=== PATIENT | male | born 1945 | race Caucasian/White ===

== ENCOUNTER 2023-05-12 14:45 | Inpatient (IN) | payer MEDICARE, OTHER ==
[2023-05-12] MEDS ORDERED: Morphine 4 MG/ML VIAL ONE (14:55)
[2023-05-12] MEDS ORDERED: Iopamidol-370 76% 500 ML MDV (1 ML CHARGE) ONE (14:59)
[2023-05-12] MEDS ORDERED: Piperacillin/Tazobactam 4.5 GM VIAL ONE (15:01)
[2023-05-12] MEDS ORDERED: Sodium Chloride 0.9% 100 ML ONE (15:01)
[2023-05-12 15:08] LABS: #Basophils 0.1 thou/uL (0.0-0.2); #Eosinphils 0.1 thou/uL (0.0-0.7); %Basophils 1.3 % (0.0-1.0); %Eosinophils 0.6 % (0.0-10.0); %Lymphocytes 38.3 % (21.0-51.0); %Monocytes 12.4 % (0.0-10.0); %Neutrophils 47.3 % (42.0-75.0); Hematocrit 39.8 % (42.0-52.0); Mean Corpuscular HGB CONC 32.7 g/dL (32.0-36.0); Mean Corpuscular Hemoglobin 31.9 pg (27.0-31.0); Mean Corpuscular Volume 97.5 fl (78.0-98.0); Mean Platelet Volume 10.3 fL (7.4-10.4); Platelet Count 215 10x3/uL (130-400); RBC Distribution Width 13.1 % (11.5-14.5); Red Blood Cell (RBC) Count 4.08 mill/uL (4.70-6.10); White Blood Cell (WBC) Count 8.4 10x3/uL (4.8-10.8)
[2023-05-12 15:33] LABS: ALT (SGPT) 17 U/L (8-55); AST (SGOT) 17 U/L (5-34); Albumin 3.9 g/dL (3.4-4.8); Alkaline Phosphatase 85 U/L (40-110); Anion Gap 12 mmol/L (10-20); BUN (Urea Nitrogen) 20 mg/dL (8.4-25.7); Bilirubin, Total 0.5 mg/dL (0.2-1.2); Calc. Creatinine Clearance 0 mL/min (70-130); Calcium 9.3 mg/dL (7.8-10.44); Carbon Dioxide 22 mmol/L (23-31); Chloride 106 mmol/L (98-107); Estimated GFR 81; Globulin 2.8 g/dL (2.4-3.5); Glucose 135 mg/dL (83-110); Protein, Total 6.7 g/dL (5.8-8.1); Sodium 136 mmol/L (136-145)
[2023-05-12] MEDS ORDERED: Ondansetron PF 4 MG/2 ML Vial IVP PRN ×2 (15:50→18:37)
[2023-05-12] MEDS ORDERED: Morphine 4 MG/ML VIAL SLOW IVP PRN (15:50)
[2023-05-12] MEDS ORDERED: Morphine 2 MG/ML VIAL SLOW IVP PRN (15:50)
[2023-05-12] MEDS ORDERED: traMADol HCl 50 MG TAB PO PRN (15:54)
[2023-05-12] MEDS ORDERED: Sodium Chloride 0.9% 1,000 ML IV SCH (16:00)
[2023-05-12] MEDS ORDERED: fentaNYL 50 mcg/mL 1 mL Vial ONE ×2 (17:00→20:20)
[2023-05-12] MEDS ORDERED: fentaNYL PF 100 MCG/2 ML SYRINGE ONE (17:18)
[2023-05-12] MEDS ORDERED: PROPOFOL 20 ML ONE (17:18)
[2023-05-12] MEDS ORDERED: Rocuronium Bromide 10 MG/ML (10ML VIAL) ONE ×2 (17:20→19:36)
[2023-05-12] MEDS ORDERED: Lidocaine 1% PF 5 ML VIAL ONE (17:20)
[2023-05-12] MEDS ORDERED: Ondansetron PF 4 MG/2 ML Vial ONE (17:20)
[2023-05-12] MEDS ORDERED: SUCCINYLCHOLINE/SOD CL,ISO/PF 200 MG/10 ML SYRINGE FS ONE (17:20)
[2023-05-12] MEDS ORDERED: SUGAMMADEX SODIUM 200 MG/2 ML VIAL ONE ×2 (17:20→19:47)
[2023-05-12] MEDS ORDERED: Dexamethasone 4 mg/ml Vial ONE (17:20)
[2023-05-12] MEDS ORDERED: Acetaminophen 500 MG TAB PO SCH (18:00)
[2023-05-12] MEDS ORDERED: Phenylephrine 10 MG/ML VIAL ONE (18:03)
[2023-05-12] MEDS ORDERED: Promethazine HCl 25 MG/ML VIAL IM PRN ×2 (18:37)
[2023-05-12] MEDS ORDERED: Ondansetron HCl/PF 4 MG/2 ML Vial IVP PRN (18:37)
[2023-05-12] MEDS ORDERED: diphenhydrAMINE 25 MG CAP PO PRN (18:37)
[2023-05-12] MEDS ORDERED: diphenhydrAMINE 50 MG/ML VIAL IVP PRN (18:37)
[2023-05-12] MEDS ORDERED: FENTANYL 500 MCG/10 ML VIAL 2,000 MCG in Sodium Chloride 0.9% 60 ML IV PRN (18:37)
[2023-05-12] MEDS ORDERED: Naloxone HCl 0.4 mg/ml Vial IV PRN (18:37)
[2023-05-12] MEDS ORDERED: diphenhydrAMINE 50 MG/ML VIAL IM PRN (18:37)
[2023-05-12] MEDS ORDERED: Communication Order-Pharmacy FS SCH (18:45)
[2023-05-12] MEDS ORDERED: Piperacillin/Tazobactam 3.375 GM in Sodium Chloride 0.9% 100 ML IVPB SCH (20:00)
[2023-05-12 23:21] LABS: Magnesium 1.9 mg/dL (1.6-2.6)
[2023-05-12] MEDS: Lactated Ringer's 1,000 ML IV SCH (23:21)
[2023-05-12] MEDS: Ketorolac Tromethamine 30 MG (1 mL) VIAL IVP SCH (23:22)
[2023-05-12] MEDS: Piperacillin/Tazobactam 3.375 GM in Sodium Chloride 0.9% 100 ML IVPB SCH (23:22)
[2023-05-12] MEDS: Enoxaparin 40 MG (0.4 mL) SYRINGE SC SCH (23:23)
[2023-05-12] MEDS: Famotidine/PF 20 mg/2ml Vial SLOW IVP SCH (23:23)
[2023-05-12 23:29] LABS: Critical Call Chem-Lactate NUR.AB6@2328; Lactic Acid 5.6 mmol/L (0.5-2.2)
[2023-05-13] MEDS: traMADol HCl 50 MG TAB PO SCH (00:38)
[2023-05-13] MEDS: Lactated Ringer's 1,000 ML IV SCH (01:21)
[2023-05-13 05:25] LABS: Hemoglobin 15.8 g/dL (14.0-18.0); Manual Diff?? YES; Mean Corpuscular HGB CONC 32.3 g/dL (32.0-36.0); Mean Corpuscular Hemoglobin 32.2 pg (27.0-31.0); Mean Corpuscular Volume 99.8 fl (78.0-98.0); Mean Platelet Volume 10.8 fL (7.4-10.4); Platelet Count 129 10x3/uL (130-400); RBC Distribution Width 13.3 % (11.5-14.5); White Blood Cell (WBC) Count 5.3 10x3/uL (4.8-10.8)
[2023-05-13 05:35] LABS: Anion Gap 16 mmol/L (10-20); BUN (Urea Nitrogen) 22 mg/dL (8.4-25.7); Calc. Creatinine Clearance 89 mL/min (70-130); Calcium 8.4 mg/dL (7.8-10.44); Carbon Dioxide 18 mmol/L (23-31); Chloride 108 mmol/L (98-107); Estimated GFR 66; Glucose 154 mg/dL (83-110); Magnesium 1.9 mg/dL (1.6-2.6); Potassium 4.8 mmol/L (3.5-5.1); Sodium 137 mmol/L (136-145)
[2023-05-13 05:44] LABS: Delete Auto Diff?? YES; Hematocrit 48.9 % (42.0-52.0)
[2023-05-13 06:33] LABS: Band 42 % (5-11); Burr Cells SLIGHT = 2-5 cells HPF (0-1); CellaVision Operator ID lab.sh2; Large Platelets 2.7 % (0-5); Lymphocytes 8 % (21-51); Metamyelocyte 7 % (0-0); Monocytes 16 % (0-10); Neutrophil 27 % (42-75); Platelet Adequacy Comment Platelets Decreased; Polychromasia SLIGHT = 2-3 cells HPF (0-2); Smudge Cells 24.8 %; Total Cell Count 113
[2023-05-13 09:59] LABS: INR-International Normal Ratio 1.2; PTT 27.6 sec (22.9-36.1); Prothrombin Time 14.8 sec (12.0-14.7)
[2023-05-13 11:38] LABS: Lactic Acid 4.7 mmol/L (0.5-2.2)
[2023-05-13] MEDS: Timolol 0.5% Ophth Soln 5 ml Bottle L EYE SCH (22:24)
[2023-05-13] MEDS: Polyvinyl Alcohol 1.4%/Povidone 0.6% Opth Drops L EYE SCH (22:26)
[2023-05-14 05:48] LABS: Manual Diff?? YES; Mean Corpuscular HGB CONC 31.7 g/dL (32.0-36.0); Mean Corpuscular Hemoglobin 32.1 pg (27.0-31.0); Mean Corpuscular Volume 101.3 fl (78.0-98.0); Mean Platelet Volume 10.7 fL (7.4-10.4); Platelet Count 113 10x3/uL (130-400); RBC Distribution Width 13.9 % (11.5-14.5); Red Blood Cell (RBC) Count 3.83 mill/uL (4.70-6.10); White Blood Cell (WBC) Count 9.7 10x3/uL (4.8-10.8)
[2023-05-14 05:50] LABS: Delete Auto Diff?? YES; Hematocrit 38.8 % (42.0-52.0); Hemoglobin 12.3 g/dL (14.0-18.0)
[2023-05-14 06:12] LABS: Lactic Acid 3.9 mmol/L (0.5-2.2)
[2023-05-14 06:13] LABS: Band 39 % (5-11); CellaVision Operator ID LAB.CLH1; Hypochromia SLIGHT = 6-15 cells HPF (0-5); Large Platelets 1.9 % (0-5); Lymphocytes 7 % (21-51); Metamyelocyte 9 % (0-0); Monocytes 7 % (0-10); Neutrophil 37 % (42-75); Platelet Adequacy Comment Platelets Normal; Polychromasia SLIGHT = 2-3 cells HPF (0-2); Total Cell Count 108
[2023-05-14 06:19] LABS: Anion Gap 10 mmol/L (10-20); BUN (Urea Nitrogen) 35 mg/dL (8.4-25.7); Calc. Creatinine Clearance 69 mL/min (70-130); Calcium 7.8 mg/dL (7.8-10.44); Carbon Dioxide 24 mmol/L (23-31); Chloride 105 mmol/L (98-107); Estimated GFR 49; Glucose 114 mg/dL (83-110); Potassium 4.8 mmol/L (3.5-5.1); Sodium 134 mmol/L (136-145)
[2023-05-14] MEDS: Losartan 25 MG TAB PO SCH (08:55)
[2023-05-14] MEDS: Lactated Ringer's 500 ML IV SCH (11:14)
[2023-05-14] MEDS: Albumin 5% 12.5 GM (250 mL) BOT IVPB SCH (13:30)
[2023-05-14 17:53] LABS: Phosphorus 2.5 mg/dL (2.3-4.7)
[2023-05-14 17:56] LABS: Magnesium 1.8 mg/dL (1.6-2.6)
[2023-05-14 17:57] LABS: Troponin I 0.056 ng/mL (< 0.028)
[2023-05-14] MEDS: dilTIAZem 25 MG/5 ML VIAL SLOW IVP SCH (20:05)
[2023-05-14 21:06] LABS: Troponin I 0.066 ng/mL (< 0.028)
[2023-05-14] MEDS: dilTIAZem 125 MG in Sodium Chloride 0.9% 100 ML IVPB SCH (22:14)
[2023-05-14] MEDS: Magnesium 2 GM/50 ML(in water) 2 GM in Premix 1 BAG IVPB SCH (22:15)
[2023-05-14] MEDS: Enoxaparin 120 MG/0.8 ML SYRINGE SC SCH (22:15)
[2023-05-15 09:25] LABS: Hematocrit 40.6 % (42.0-52.0); Hemoglobin 13.1 g/dL (14.0-18.0); Manual Diff?? YES; Mean Corpuscular HGB CONC 32.3 g/dL (32.0-36.0); Mean Corpuscular Hemoglobin 32.1 pg (27.0-31.0); Mean Corpuscular Volume 99.5 fl (78.0-98.0); Mean Platelet Volume 11.2 fL (7.4-10.4); Platelet Count 93 10x3/uL (130-400); Red Blood Cell (RBC) Count 4.08 mill/uL (4.70-6.10)
[2023-05-15 09:27] LABS: Delete Auto Diff?? YES
[2023-05-15 09:52] LABS: Anion Gap 15 mmol/L (10-20); BUN (Urea Nitrogen) 30 mg/dL (8.4-25.7); Calc. Creatinine Clearance 87 mL/min (70-130); Calcium 8.3 mg/dL (7.8-10.44); Carbon Dioxide 19 mmol/L (23-31); Chloride 108 mmol/L (98-107); Estimated GFR 64; Glucose 121 mg/dL (83-110); Potassium 4.7 mmol/L (3.5-5.1); Sodium 137 mmol/L (136-145)
[2023-05-15 10:29] LABS: Band 15 % (5-11); Burr Cells SLIGHT = 2-5 cells HPF (0-1); CellaVision Operator ID LAB.KW3; Lymphocytes 4 % (21-51); Monocytes 3 % (0-10); Neutrophil 78 % (42-75); Platelet Adequacy Comment Platelets Decreased; Polychromasia SLIGHT = 2-3 cells HPF (0-2); Total Cell Count 101
[2023-05-15] MEDS: Furosemide 40 MG (4 mL) VIAL SLOW IVP SCH (14:34)
[2023-05-15] MEDS: Amiodarone 450 MG in Dextrose 5% in Water 250 ML IVPB SCH (23:13)
[2023-05-16 07:33] LABS: Hematocrit 36.1 % (42.0-52.0); Hemoglobin 11.8 g/dL (14.0-18.0); Manual Diff?? YES; Mean Corpuscular HGB CONC 32.7 g/dL (32.0-36.0); Mean Corpuscular Hemoglobin 32.2 pg (27.0-31.0); Mean Corpuscular Volume 98.6 fl (78.0-98.0); Mean Platelet Volume 10.7 fL (7.4-10.4); Platelet Count 110 10x3/uL (130-400); RBC Distribution Width 13.9 % (11.5-14.5); Red Blood Cell (RBC) Count 3.66 mill/uL (4.70-6.10)
[2023-05-16 07:38] LABS: Delete Auto Diff?? YES
[2023-05-16 08:02] LABS: Anion Gap 10 mmol/L (10-20); BUN (Urea Nitrogen) 29 mg/dL (8.4-25.7); Calc. Creatinine Clearance 95 mL/min (70-130); Calcium 8.1 mg/dL (7.8-10.44); Carbon Dioxide 28 mmol/L (23-31); Chloride 106 mmol/L (98-107); Critical Call Chemistry nur.emn at 0801; Estimated GFR 71; Glucose 138 mg/dL (83-110); Phosphorus 1.5 mg/dL (2.3-4.7); Potassium 3.6 mmol/L (3.5-5.1); Sodium 140 mmol/L (136-145)
[2023-05-16 08:26] LABS: Band 19 % (5-11); CellaVision Operator ID LAB.KW3; Lymphocytes 8 % (21-51); Monocytes 5 % (0-10); Neutrophil 66 % (42-75); Platelet Adequacy Comment Platelets Decreased; RBC Morphology Within Normal Limits; Reactive Lymphocytes 2 % (0-10); Total Cell Count 101
[2023-05-16] MEDS: Furosemide 40 MG (4 mL) VIAL SLOW IVP SCH (13:24)
[2023-05-16] MEDS: PHOS-NAK 1 PKT PACK PO SCH ×2 (15:57→16:19)
[2023-05-17] MEDS: Piperacillin/Tazobactam 3.375 GM in Sodium Chloride 0.9% 100 ML IVPB SCH (11:43)
[2023-05-19] MEDS ORDERED: Acetaminophen 325 MG TAB PO PRN (11:47)
[2023-05-19] MEDS ORDERED: HYDROcodone/Acetaminophen 5/325 mg Tablet PO PRN (11:48)
[2023-05-19] MEDS: Acetaminophen/Codeine 30-300mg Tablet PO PRN (14:05)
[2023-05-19] MEDS: Amiodarone 200 MG TAB PO SCH (21:45)
[2023-05-20] MEDS: Morphine 2 MG/ML VIAL SLOW IVP PRN (08:35)
[2023-05-21] MEDS: Melatonin 3 MG TAB PO PRN (22:22)
[2023-05-22 12:40] VITALS: BMI 37.9
[2023-05-22] MEDS ORDERED: Acetaminophen/Codeine 30-300mg Tablet PO PRN (13:45)
[2023-05-22] MEDS ORDERED: PROPOFOL 20 ML ONE (14:19)
[2023-05-22] MEDS: Acetaminophen 325 MG TAB PO SCH (16:57)
[2023-05-22] MEDS: Apixaban 5 MG TAB PO SCH (20:24)
[2023-05-23 06:23] LABS: Anion Gap 15 mmol/L (10-20); BUN (Urea Nitrogen) 25 mg/dL (8.4-25.7); Calc. Creatinine Clearance 107 mL/min (70-130); Calcium 7.3 mg/dL (7.8-10.44); Carbon Dioxide 21 mmol/L (23-31); Chloride 104 mmol/L (98-107); Estimated GFR 79; Glucose 128 mg/dL (83-110); Magnesium 3.5 mg/dL (1.6-2.6); Phosphorus 2.7 mg/dL (2.3-4.7); Potassium 3.7 mmol/L (3.5-5.1); Sodium 136 mmol/L (136-145)
[2023-05-23 16:26] VITALS: BP 115/58; TEMP 98.2
== END 2023-05-23 17:50 | DRG 329 ==
LOC: ERS 14:45 → SDC/OP 16:21 → SURG B 20:26 → 2NO 05-14 16:08
PROVIDERS: ADMIT Specialist; ATTEND Specialist
PROC: 0DBL0ZZ Excision of Transverse Colon, Open Approach (ICD-10-PCS; principal; 2023-05-12)
PROC: 0WQF0ZZ Repair Abdominal Wall, Open Approach (ICD-10-PCS; 2023-05-12)
PROC: 0DBU0ZZ Excision of Omentum, Open Approach (ICD-10-PCS; 2023-05-12)
PROC: 5A2204Z Restoration of Cardiac Rhythm, Single (ICD-10-PCS; 2023-05-22)
DX: K43.0 Incisional hernia with obstruction, without gangrene (principal); I21.A1 Myocardial infarction type 2; K63.1 Perforation of intestine (nontraumatic); K65.9 Peritonitis, unspecified; I48.91 Unspecified atrial fibrillation; I10 Essential (primary) hypertension; N28.9 Disorder of kidney and ureter, unspecified; K86.9 Disease of pancreas, unspecified; K66.0 Peritoneal adhesions (postprocedural) (postinfection); E86.1 Hypovolemia; R00.0 Tachycardia, unspecified; Z79.899 Other long term (current) drug therapy
CPT/HCPCS: 36415; 36416; 74177; 80048; 80053; 83605; 83735; 83880; 84100; 84443; 84484; 85025; 85610; 85730; 88307; 92960; 93005; 93010; 93306; 96361; 96365; 96375; 97139; A4314; A4649; J0282; J1100; J1650; J1885; J1940; J2270; J2272; J2371; J2405; J2543; J2704; J3010; J3475; J3490; J7070; J7120; P9045; Q9967; S0028

== ENCOUNTER 2023-05-29 01:52 | Inpatient (IN) | payer MEDICARE, OTHER ==
[2023-05-29 02:37] LABS: #Basophils 0.1 thou/uL (0.0-0.2); #Eosinphils 0.1 thou/uL (0.0-0.7); #Monocytes 1.7 thou/uL (0.11-0.59); #Neutrophils 7.6 thou/uL (1.40-6.50); %Basophils 0.8 % (0.0-1.0); %Eosinophils 0.5 % (0.0-10.0); %Lymphocytes 18.3 % (21.0-51.0); %Monocytes 14.5 % (0.0-10.0); %Neutrophils 65.5 % (42.0-75.0); Hematocrit 28.9 % (42.0-52.0); Hemoglobin 9.1 g/dL (14.0-18.0); Mean Corpuscular HGB CONC 31.5 g/dL (32.0-36.0); Mean Corpuscular Hemoglobin 31.2 pg (27.0-31.0); Mean Platelet Volume 9.5 fL (7.4-10.4); Platelet Count 454 10x3/uL (130-400); RBC Distribution Width 13.7 % (11.5-14.5); Red Blood Cell (RBC) Count 2.92 mill/uL (4.70-6.10); White Blood Cell (WBC) Count 11.6 10x3/uL (4.8-10.8)
[2023-05-29 02:50] LABS: INR-International Normal Ratio 1.8; Prothrombin Time 20.7 sec (12.0-14.7)
[2023-05-29 02:51] LABS: PTT 39.3 sec (22.9-36.1)
[2023-05-29 03:05] LABS: ALT (SGPT) 19 U/L (8-55); AST (SGOT) 28 U/L (5-34); Albumin 2.2 g/dL (3.4-4.8); Alkaline Phosphatase 76 U/L (40-110); Anion Gap 13 mmol/L (10-20); BUN (Urea Nitrogen) 19 mg/dL (8.4-25.7); Bilirubin, Total 0.5 mg/dL (0.2-1.2); Calc. Creatinine Clearance 0 mL/min (70-130); Calcium 8.1 mg/dL (7.8-10.44); Carbon Dioxide 22 mmol/L (23-31); Chloride 104 mmol/L (98-107); Estimated GFR 88; Globulin 3.6 g/dL (2.4-3.5); Glucose 142 mg/dL (83-110); Lipase 45 U/L (8-78); Potassium 4.6 mmol/L (3.5-5.1); Protein, Total 5.8 g/dL (5.8-8.1); Sodium 134 mmol/L (136-145)
[2023-05-29 03:09] LABS: Troponin I Less than 0.010 ng/mL (< 0.028)
[2023-05-29] MEDS ORDERED: Pantoprazole 40 MG VIAL ONE (04:16)
[2023-05-29] MEDS ORDERED: Sodium Chloride 0.9% 100 ML ONE (04:56)
[2023-05-29] MEDS ORDERED: Piperacillin/Tazobactam 4.5 GM VIAL ONE (04:56)
[2023-05-29] MEDS ORDERED: Ondansetron ODT 4 MG TAB PO PRN (07:15)
[2023-05-29] MEDS ORDERED: Glucagon 1 MG/ML KIT IM PRN (07:15)
[2023-05-29] MEDS ORDERED: Dextrose 5% in Water 1,000 ML IV PRN (07:15)
[2023-05-29] MEDS ORDERED: Ondansetron PF 4 MG/2 ML Vial IVP PRN (07:15)
[2023-05-29] MEDS ORDERED: Dextrose 50% Abboject 50 ML SYRINGE SLOW IVP PRN (07:15)
[2023-05-29] MEDS: Sodium Chloride 0.9% 1,000 ML IV SCH (09:00)
[2023-05-29] MEDS: Famotidine 20 MG TAB PO SCH (09:05)
[2023-05-29] MEDS: TETANUS, DIPHTHERIA TOX,ADULT (TDVAX) 0.5 ML VIAL IM ONE (09:05)
[2023-05-29] MEDS ORDERED: ISOVUE-370 76% MDV (1 ML CHARGE) ONE (09:41)
[2023-05-29] MEDS: ADMIXTURE FEE IV SCH (10:29)
[2023-05-29] MEDS: [UNRECOGNIZED DRUG - OTHER] IV SCH (10:29)
[2023-05-29] MEDS: HUM PROTHROMBIN CPLX IV SCH (10:29)
[2023-05-29 10:31] LABS: Hematocrit 24.5 % (42.0-52.0); Hemoglobin 7.8 g/dL (14.0-18.0)
[2023-05-29] MEDS: Pantoprazole 40 MG VIAL IVP SCH (11:27)
[2023-05-29] MEDS: Pantoprazole 80 MG, Admixture Fee 1 EACH in Sodium Chloride 0.9% 100 ML IVPB SCH (12:17)
[2023-05-29] MEDS ORDERED: Piperacillin/Tazobactam 3.375 GM in Sodium Chloride 0.9% 100 ML IVPB SCH ×2 (13:00→18:00)
[2023-05-29] MEDS: Piperacillin/Tazobactam 3.375 GM in Sodium Chloride 0.9% 100 ML IVPB SCH ×2 (13:42→19:52)
[2023-05-29 14:23] LABS: Hematocrit 22.3 % (42.0-52.0); Hemoglobin 7.4 g/dL (14.0-18.0)
[2023-05-29] MEDS ORDERED: Lidocaine 1% w/Epinephrine 1:100K 20 ML VIAL ONE (16:03)
[2023-05-29] MEDS ORDERED: fentaNYL 50 mcg/mL 1 mL Vial ONE (16:03)
[2023-05-29] MEDS ORDERED: Sodium Bicarbonate 2.5 MEQ/5 ML SDV ONE (16:03)
[2023-05-29 19:25] LABS: RBC Count-Automated (BF) 1258 /cu.mm; WBC/Nucleated-Auto (BF) 685 /cu.mm
[2023-05-29 19:26] LABS: BF Color Yellow; Body Fluid Source Pleural Fluid; Clarity Hazy (Clear); Tube # EDTA
[2023-05-29 19:48] LABS: Pleural Fluid, Protein 2.9 g/dL
[2023-05-29] MEDS: Lactated Ringer's 1,000 ML IV SCH (19:54)
[2023-05-29 20:03] LABS: Hematocrit 25.6 % (42.0-52.0); Hemoglobin 8.2 g/dL (14.0-18.0)
[2023-05-29 20:17] LABS: BF Segmented Neutrophils 41 %; Cell Count Non Hematic 29 %; Eosinophils 1 %; Lymphocytes 26 %
[2023-05-29] MEDS: Acetaminophen 325 MG TAB PO PRN (20:32)
[2023-05-30 04:40] LABS: #Basophils 0.2 thou/uL (0.0-0.2); #Monocytes 1.4 thou/uL (0.11-0.59); #Neutrophils 8.1 thou/uL (1.40-6.50); %Basophils 1.4 % (0.0-1.0); %Lymphocytes 17.4 % (21.0-51.0); %Neutrophils 68.4 % (42.0-75.0); Hematocrit 23.7 % (42.0-52.0); Hemoglobin 7.8 g/dL (14.0-18.0); Mean Corpuscular HGB CONC 32.9 g/dL (32.0-36.0); Mean Platelet Volume 9.8 fL (7.4-10.4); Platelet Count 342 10x3/uL (130-400); Red Blood Cell (RBC) Count 2.52 mill/uL (4.70-6.10); White Blood Cell (WBC) Count 11.8 10x3/uL (4.8-10.8)
[2023-05-30 04:59] LABS: Anion Gap 10 mmol/L (10-20); BUN (Urea Nitrogen) 23 mg/dL (8.4-25.7); Calc. Creatinine Clearance 106 mL/min (70-130); Calcium 7.6 mg/dL (7.8-10.44); Carbon Dioxide 21 mmol/L (23-31); Chloride 106 mmol/L (98-107); Estimated GFR 87; Glucose 151 mg/dL (83-110); Magnesium 2.2 mg/dL (1.6-2.6); Phosphorus 3.2 mg/dL (2.3-4.7); Potassium 4.7 mmol/L (3.5-5.1); Sodium 132 mmol/L (136-145)
[2023-05-30] MEDS: Melatonin 3 MG TAB PO PRN (22:04)
[2023-05-31 03:54] LABS: #Basophils 0.1 thou/uL (0.0-0.2); #Monocytes 1.5 thou/uL (0.11-0.59); #Neutrophils 8.8 thou/uL (1.40-6.50); %Basophils 0.7 % (0.0-1.0); %Lymphocytes 16.3 % (21.0-51.0); %Monocytes 12.3 % (0.0-10.0); %Neutrophils 69.9 % (42.0-75.0); Hematocrit 20.6 % (42.0-52.0); Hemoglobin 6.6 g/dL (14.0-18.0); Mean Corpuscular Hemoglobin 31.1 pg (27.0-31.0); Mean Platelet Volume 9.5 fL (7.4-10.4); Platelet Count 288 10x3/uL (130-400); RBC Distribution Width 14.6 % (11.5-14.5); Red Blood Cell (RBC) Count 2.12 mill/uL (4.70-6.10); White Blood Cell (WBC) Count 12.5 10x3/uL (4.8-10.8)
[2023-05-31 04:04] LABS: Mean Corpuscular Volume 97.2 fl (78.0-98.0)
[2023-05-31 04:25] LABS: ALT (SGPT) 14 U/L (8-55); AST (SGOT) 21 U/L (5-34); Albumin 1.9 g/dL (3.4-4.8); Alkaline Phosphatase 56 U/L (40-110); Anion Gap 11 mmol/L (10-20); BUN (Urea Nitrogen) 16 mg/dL (8.4-25.7); Bilirubin, Total 0.3 mg/dL (0.2-1.2); Calc. Creatinine Clearance 116 mL/min (70-130); Calcium 7.3 mg/dL (7.8-10.44); Carbon Dioxide 22 mmol/L (23-31); Chloride 106 mmol/L (98-107); Estimated GFR 89; Glucose 121 mg/dL (83-110); Potassium 4.2 mmol/L (3.5-5.1); Protein, Total 4.9 g/dL (5.8-8.1); Sodium 135 mmol/L (136-145)
[2023-05-31 10:31] LABS: Hematocrit 25.5 % (42.0-52.0); Hemoglobin 8.3 g/dL (14.0-18.0)
[2023-06-01 09:04] LABS: #Basophils 0.1 thou/uL (0.0-0.2); #Monocytes 1.2 thou/uL (0.11-0.59); #Neutrophils 8.9 thou/uL (1.40-6.50); %Basophils 0.8 % (0.0-1.0); %Lymphocytes 13.5 % (21.0-51.0); %Monocytes 10.2 % (0.0-10.0); %Neutrophils 74.9 % (42.0-75.0); Hematocrit 24.8 % (42.0-52.0); Mean Corpuscular HGB CONC 32.3 g/dL (32.0-36.0); Mean Corpuscular Hemoglobin 31.7 pg (27.0-31.0); Mean Corpuscular Volume 98.4 fl (78.0-98.0); Mean Platelet Volume 9.4 fL (7.4-10.4); Platelet Count 307 10x3/uL (130-400); RBC Distribution Width 15.3 % (11.5-14.5); Red Blood Cell (RBC) Count 2.52 mill/uL (4.70-6.10); White Blood Cell (WBC) Count 11.9 10x3/uL (4.8-10.8)
[2023-06-01 14:39] VITALS: BMI 35.9
[2023-06-02 04:29] LABS: #Basophils 0.1 thou/uL (0.0-0.2); #Monocytes 1.2 thou/uL (0.11-0.59); #Neutrophils 6.9 thou/uL (1.40-6.50); %Basophils 0.6 % (0.0-1.0); %Lymphocytes 17.7 % (21.0-51.0); %Monocytes 11.8 % (0.0-10.0); %Neutrophils 69.3 % (42.0-75.0); Hematocrit 23.5 % (42.0-52.0); Hemoglobin 7.6 g/dL (14.0-18.0); Mean Corpuscular HGB CONC 32.3 g/dL (32.0-36.0); Mean Corpuscular Hemoglobin 31.7 pg (27.0-31.0); Mean Corpuscular Volume 97.9 fl (78.0-98.0); Mean Platelet Volume 9.5 fL (7.4-10.4); Platelet Count 300 10x3/uL (130-400); RBC Distribution Width 15.4 % (11.5-14.5); White Blood Cell (WBC) Count 9.9 10x3/uL (4.8-10.8)
[2023-06-03 04:58] LABS: #Basophils 0.1 thou/uL (0.0-0.2); #Eosinphils 0.1 thou/uL (0.0-0.7); #Monocytes 1.3 thou/uL (0.11-0.59); #Neutrophils 6.9 thou/uL (1.40-6.50); %Basophils 0.5 % (0.0-1.0); %Eosinophils 1.1 % (0.0-10.0); %Lymphocytes 20.9 % (21.0-51.0); %Monocytes 12.4 % (0.0-10.0); %Neutrophils 64.6 % (42.0-75.0); Hematocrit 25.8 % (42.0-52.0); Hemoglobin 8.2 g/dL (14.0-18.0); Mean Corpuscular HGB CONC 31.8 g/dL (32.0-36.0); Mean Corpuscular Hemoglobin 30.7 pg (27.0-31.0); Mean Corpuscular Volume 96.6 fl (78.0-98.0); Mean Platelet Volume 9.5 fL (7.4-10.4); Platelet Count 339 10x3/uL (130-400); RBC Distribution Width 15.1 % (11.5-14.5); Red Blood Cell (RBC) Count 2.67 mill/uL (4.70-6.10); White Blood Cell (WBC) Count 10.6 10x3/uL (4.8-10.8)
[2023-06-04 08:20] LABS: #Basophils 0.1 thou/uL (0.0-0.2); #Monocytes 1.1 thou/uL (0.11-0.59); %Basophils 0.9 % (0.0-1.0); %Lymphocytes 17.6 % (21.0-51.0); %Monocytes 11.3 % (0.0-10.0); %Neutrophils 69.7 % (42.0-75.0); Hematocrit 25.2 % (42.0-52.0); Hemoglobin 8.1 g/dL (14.0-18.0); Mean Corpuscular HGB CONC 32.1 g/dL (32.0-36.0); Mean Corpuscular Hemoglobin 30.6 pg (27.0-31.0); Mean Corpuscular Volume 95.1 fl (78.0-98.0); Mean Platelet Volume 9.1 fL (7.4-10.4); Platelet Count 315 10x3/uL (130-400); RBC Distribution Width 15.1 % (11.5-14.5); Red Blood Cell (RBC) Count 2.65 mill/uL (4.70-6.10)
[2023-06-04 08:37] LABS: Anion Gap 11 mmol/L (10-20); BUN (Urea Nitrogen) 13 mg/dL (8.4-25.7); Calc. Creatinine Clearance 122 mL/min (70-130); Calcium 8.1 mg/dL (7.8-10.44); Carbon Dioxide 24 mmol/L (23-31); Chloride 103 mmol/L (98-107); Estimated GFR 89; Glucose 129 mg/dL (83-110); Potassium 4.2 mmol/L (3.5-5.1); Sodium 134 mmol/L (136-145)
[2023-06-05 05:01] LABS: #Basophils 0.1 thou/uL (0.0-0.2); #Monocytes 1.2 thou/uL (0.11-0.59); #Neutrophils 6.4 thou/uL (1.40-6.50); %Basophils 0.6 % (0.0-1.0); %Lymphocytes 21.1 % (21.0-51.0); %Monocytes 12.2 % (0.0-10.0); %Neutrophils 65.8 % (42.0-75.0); Hematocrit 23.6 % (42.0-52.0); Hemoglobin 7.5 g/dL (14.0-18.0); Mean Corpuscular HGB CONC 31.8 g/dL (32.0-36.0); Mean Corpuscular Volume 97.5 fl (78.0-98.0); Mean Platelet Volume 9.4 fL (7.4-10.4); Platelet Count 318 10x3/uL (130-400); RBC Distribution Width 14.9 % (11.5-14.5); Red Blood Cell (RBC) Count 2.42 mill/uL (4.70-6.10); White Blood Cell (WBC) Count 9.8 10x3/uL (4.8-10.8)
[2023-06-05] MEDS ORDERED: Iopamidol 370 76% 100 ML VIAL ONE (09:13)
[2023-06-06 05:38] LABS: #Basophils 0.1 thou/uL (0.0-0.2); #Monocytes 1.1 thou/uL (0.11-0.59); %Basophils 0.6 % (0.0-1.0); %Lymphocytes 17.3 % (21.0-51.0); %Monocytes 11.5 % (0.0-10.0); %Neutrophils 70.1 % (42.0-75.0); Hemoglobin 8.1 g/dL (14.0-18.0); Mean Corpuscular HGB CONC 32.4 g/dL (32.0-36.0); Mean Corpuscular Hemoglobin 30.8 pg (27.0-31.0); Mean Corpuscular Volume 95.1 fl (78.0-98.0); Platelet Count 307 10x3/uL (130-400); RBC Distribution Width 14.7 % (11.5-14.5); Red Blood Cell (RBC) Count 2.63 mill/uL (4.70-6.10); White Blood Cell (WBC) Count 9.9 10x3/uL (4.8-10.8)
[2023-06-06 15:50] VITALS: BP 128/71; TEMP 97.9
== END 2023-06-06 18:56 | DRG 393 ==
LOC: ERS 01:52 → SJJU 08:16 → CCU 10:11 → 2NO 05-31 22:51
PROVIDERS: ADMIT Specialist; ATTEND Specialist
PROC: 0F9130Z Drainage of Right Lobe Liver with Drainage Device, Percutaneous Approach (ICD-10-PCS; principal; 2023-05-29)
PROC: 0W993ZZ Drainage of Right Pleural Cavity, Percutaneous Approach (ICD-10-PCS; 2023-05-29)
PROC: 30233N1 Transfusion of Nonautologous Red Blood Cells into Peripheral Vein, Percutaneous Approach (ICD-10-PCS; 2023-05-29)
DX: K91.89 Other postprocedural complications and disorders of digestive system (principal); K75.0 Abscess of liver; D62 Acute posthemorrhagic anemia; E87.1 Hypo-osmolality and hyponatremia; J90 Pleural effusion, not elsewhere classified; K86.2 Cyst of pancreas; K92.2 Gastrointestinal hemorrhage, unspecified; Y83.8 Other surgical procedures as the cause of abnormal reaction of the patient, or of later complication, without mention of misadventure at the time of the procedure; R00.0 Tachycardia, unspecified; I48.0 Paroxysmal atrial fibrillation; Z79.899 Other long term (current) drug therapy
CPT/HCPCS: 36415; 36416; 36430; 49020; 71045; 71250; 71260; 74177; 74183; 77002; 80048; 80053; 83615; 83690; 83735; 83986; 84100; 84145; 84157; 84484; 85025; 85060; 85610; 85730; 86850; 86900; 86901; 87040; 87070; 87076; 87077; 87186; 87205; 89051; 93005; 96365; 96375; 97139; C9113; J2543; J3010; J3490; J7050; J7120; J7168; P9016; Q9967